=== PATIENT | female | born 1955 | race Caucasian/White ===

== ENCOUNTER 2025-06-29 10:05 | Outpatient (CLI) | payer BC, SELFPAY | END 2025-06-29 10:06 | disposition home or self-care (01) | LOC: AMB 07-02 02:27 | PROVIDERS: Visit Provider Student in an Organized Health Care Education/Training Program | DX: I49.9 Cardiac arrhythmia, unspecified (principal) | CPT/HCPCS: A0425; A0427 ==

== ENCOUNTER 2025-06-29 10:36 | Emergency (ER) | payer BC, SELFPAY ==
[2025-06-29] VITALS (12 sets, daily range): BP systolic 145–170; BP diastolic 83–89; PULSE 78–93; RESP 12–21; TEMP 36.8; O2SAT 90–98
--- OUTSIDE RECORDS SUMMARY | 2025-06-29 10:40 | XMS_ITS | Clinical Summary ---
Author Organization [facility] Address [address] [place] [address] Care Team Providers Care Milling Operator Name Role Phone Josesito Billings M.D. Primary Care Provider [phone] Source Comments Patient records contain information from all sites at [facility]. For routine questions regarding patient records, call [phone] during business hours, M-F 8:00 AM - 5:00 PM Central Time. Record requests for emergency care only can be directed to [phone] at any time.[facility] Allergies No known active allergies Medications artificial tears,hypromellos e, (ISOPTO TEARS) 0.3 % ophthalmic solution 1 drop 3 (three) times a day as needed. Active betamethasone dipropionate 0.05 % cream Apply topically. 3 Active omeprazole (PriLOSEC) [address] capsule Take 40 mg by mouth. 3 Active acetaminophen (TylenoL) 325 mg tablet Take 325 mg by mouth as needed for pain. Active apixaban (Eliquis) 5 mg tablet Take 0.5 tablets (2.5 mg total) by mouth 2 (two) times a day. 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 Resolved Problems Problem Noted Date Diagnosed Date Resolved Date Cataract Senile Nuclear Sclerosis Left 01/29/2019 04/11/2023 Overview (01/29/2019): Added automatically from request for surgery [id number] Cataract Senile Nuclear Sclerosis Right 01/29/2019 04/11/2023 Overview (02/10/2019): Added automatically from request for surgery [id number] Hypothyroidism 06/28/2009 10/15/2024 Immunizations Immunization Administration Dates Next Due PCV20 10/26/2022 SARS-COV-2 (COVID-19) - PFIZ ER (Discontinued)(12 years or older) 07/05/2021,11/14/2020,10/19/2020 Td (Adult), adsorbed 11/11/2003 Td Preservative Free (TENIVAC, DECAVAC) 10/27/19 23 Tdap 04/02/2013 Family History Medical History Relation Name Comments Cataracts Father Cataracts Mother Anesthesia problems Neg Hx Diabetes Neg Hx Glaucoma Neg Hx Hypertension Neg Hx Macular degeneration Neg Hx Relation Name Status Comments Father Mother Social History Tobacco Use Types Packs/Day Years Used Date Smoking Tobacco: Never Smokeless Tobacco: Never Alcohol Use Standard Drinks/Week Comments Yes 5 (1 standard drink = 0.6 oz pur e alcohol) [facility] Utilities Answer Date Recorded In the past 12 months has e [employer] gas, oil, or water [employer] threatened to shut off services in your home? No 10/09/2024 Hunger Vital Sign Answer Date Recorded Within the past 12 months, y ou worried that your food would run out before you got the money to buy more. Never true 10/10/19 25 Ran Out of Food in the Last Year Not on file 10/09/2024 PRAPARE - Transportation Answer Date Re corded In the past 12 months, has l ack of transportation kept you from medical appointments or from getting medications? No 02/2025 In the past 12 months, has l ack of transportation kept you from meetings, work, or from getting things needed for daily living? No 10/09/2024 Housing Stability Answer Date Recorded What is your living situation today? I have a [facility] place to live 10/09/2024 Comments No Sex and Gender Information Value Date Recorded Sex Assigned at Female 10/09/2024 10:51 AM FINANCIAL OPERATIONS ANALYST Legal Sex Female 6:41 AM FINANCIAL OPERATIONS ANALYST Gender Identity Female 10/09/2024 10:51 AM FINANCIAL OPERATIONS ANALYST Sexual Orientation Straight 10/09/2024 10 :51 AM FINANCIAL OPERATIONS ANALYST Last Filed Vital Signs Vital Sign Reading Time Taken Comments Blood Pressure 145/84 10/21/2024 11:45 AM CDT Pulse 67 10/21/2024 11:45 AM CDT Temperature 36 C (96.8 F) 10/21/2024 11:30 AM CDT Respiratory Rate 16 10/21/2024 11:3 0 AM CDT Oxygen Saturation 96% 10/21/2024 11: 45 AM CDT Inhaled Oxygen Concentration - - Weight 94.2 kg (207 lb 10.8 oz) 025 10:37 AM CDT Height 162 cm (5' 3.78) 10/21/2024 10: 37 AM CDT Body Mass Index 35.89 10/21/2024 10:37 AM CDT Plan of Treatment Health Maintenance Due Date Last Done Comments CT Colonography 1957 Cologuard 1957 Colonoscopy 1957 Colorectal Cancer Surveillance 1955 Hepatitis C Screening 1955 Zoster Vaccines (1 of 2) 2007 Mammogram 02/25/2025 02/26/2024, 02/03, 11/06/2022, Additional history exists COVID-19 Vaccine ( season) 2025 07/05/2021, 11/14/2020, 10/19/2020 Influenza Vaccine (#1) 2025 Visit: Annual, age 65+ (or Medicare and <65) 10/15/2025 10/15/2024 Fasting Glucose for Diabetes Screening 09/14/2027 09/14/2024, 07/14/2024, 07/14/2024, Additional history exists DTaP,Tdap,and Td Vaccines (3 - Td or Tdap) 10/26/2032 10/26/2022, 04/02/2013, 11/11/2003 Pneumococcal vaccine (50+ years) Completed 10/26/2022 Bone Density Scan (Osteoporosis Screen) Discontinued 11/06/2022 Depression Screening (Annual PHQ-2) Completed 10/15/2024, 10/09/2024 Fall Risk Screen (Annual) Completed 10/21/2024 IPV Vaccines Aged Out No longer eligi ble based on patient's age to complete this topic Medical Devices Implanted Type Area Thermodynamics Professor Device Identifier Shelf Expiration Date Model / Serial / Lot Syfony Lens Implanted:Qty : 1 on 02/18/2019 by Ramy Gamino M.D. at [facility] Ocular (Eye) Implant Rizo 01/21/2022 [id number] / [id number] / NA +22.5d +3.25d Add Implanted:Qty : 1 on 03/09/2019 by Ramy Gamino M.D. at [facility] Ocular Lens Left: Eye [employer] [id number] 02/06/2022 [id number] / [id number] / Procedures Procedure Name Priority Date/Time Associated Diagnosis Comments COMPREHENSIVE METABOLIC PANEL, S/P STAT 09/14/2024 12:20 PM FINANCIAL OPERATIONS ANALYST from Last 3 Months or Most Recently Relevant to Health Maintenance Results * (ABNORMAL) Comprehensive Metabolic Panel (09/14/2024 12:20 PM FINANCIAL OPERATIONS ANALYST) [facility] Potassium, P 3.9 3.6 - 5.2 mmol/L 09/14/2024 12:51 PM FINANCIAL OPERATIONS ANALYST CNFL Sodium, P 135 135 - 145 mmol/L 09/14/2024 12:51 PM FINANCIAL OPERATIONS ANALYST CNFL Chloride, P 101 98 - 107 mmol/L 09/14/2024 12:51 PM FINANCIAL OPERATIONS ANALYST CNFL Bicarbonate, P 25 22 - 29 mmol/L 09/14/2024 12:51 PM FINANCIAL OPERATIONS ANALYST CNFL Anion Gap, P 9 7 - 15 09/14/2024 12:51 PM FINANCIAL OPERATIONS ANALYST CNFL BUN (Blood Urea Nitrogen), P 11 6 - 21 mg/dL 09/14/2024 12:51 PM FINANCIAL OPERATIONS ANALYST CNFL Creatinine 0.73 0.59 - 1.04 mg/dL 09/14/2024 12:51 PM FINANCIAL OPERATIONS ANALYST CNFL Estimated GFR (eGFR) >90 >=60 mL/min/BS A 09/14/2024 12:51 PM FINANCIAL OPERATIONS ANALYST CNFL Comment: Estimated GFR calculated using the 2020 CKD_EPI creatinine equation. Calcium, Total, P 8.4(L) 8.8 - 10.2 mg/dL 09/14/2024 12:51 PM FINANCIAL OPERATIONS ANALYST CNFL Glucose, P 155(H) 70 - 140 mg/dL 09/14/2024 12:51 PM FINANCIAL OPERATIONS ANALYST CNFL Protein, Total, P 6.7 6.3 - 7.9 g/dL 09/14/2024 12:51 PM FINANCIAL OPERATIONS ANALYST CNFL Albumin, P 4.2 3.5 - 5.0 g/dL 09/14/2024 12:51 PM FINANCIAL OPERATIONS ANALYST CNFL Aspartate Aminotransferase (AST), P 51(H) 8 - 43 U/L 09/14/2024 12:51 PM FINANCIAL OPERATIONS ANALYST CNFL Alkaline Phosphatase, P 103 35 - 104 U/L 09/14/2024 12:51 PM FINANCIAL OPERATIONS ANALYST CNFL Alanine Aminotransferase (ALT), P 75(H) 7 - 45 U/L 09/14/2024 12:51 PM FINANCIAL OPERATIONS ANALYST CNFL Bilirubin, Total, P 0.4 0.0 - 1.2 mg/dL 09/14/2024 12:51 PM FINANCIAL OPERATIONS ANALYST CNFL Blood (Blood, Venous) 09/14/2024 12:20 PM FINANCIAL OPERATIONS ANALYST 09/14/2024 12:30 PM FINANCIAL OPERATIONS ANALYST Konstantin Ruiz P.A.-C., P.A. LAB BLOOD ADD-ON F inal Result [facility] [address] [place] [id number], [facility] CN[facility] in [address] [id number] from Last 3 Months or Most Recently Relevant to [place] [address] [employer] [facility] [place] [address] Care Teams Milling Operator Relationship Specialty Start Date End Date Josesito Billings M.D. [address] [place] [address] [place] [phone] PCP - General Family Medicine 09/08/24
--- OUTSIDE RECORDS SUMMARY | 2025-06-29 10:40 | XMS_ITS | Clinical Summary ---
Author Organization [facility] Address [address] [place] [address] Care Team Providers Care Stiff Leg Derrick Operator Name Role Phone Kristi Peacock MD Primary Care Provider Allergies No known active allergies Medications omeprazole (PRILOSEC) 40 mg Delayed-Release capsuleIndicatio ns:Esophageal dysphagia Take 1 Capsule (40 mg) by mouth once daily before a meal. 90 Capsule 3 05/15/20 Active Additional Information Patient taking differently:40 mg Oral ONCE DAILY BEFORE A MEAL,As needed, Reported on 04/28/2025 betamethasone dipropionate 0.05 % creamIndications :Lichen planus atrophicus Apply topically to affected area(s) once daily. Use once daily for 1 month. Then use 3 times weekly to vaginal area. 45 g 2 01/05/20 Active Additional Information Patient taking differently:Topical DAILY,Use once daily for 1 month. Then use 3 times weekly to vaginal area. As needed, Reported on 04/28/2025 rivaroxaban (Xarelto) 10 mg tabletIndication s:History of pulmonary embolus (PE) Take 1 Tablet (10 mg) by mouth once daily with evening meal. 90 Tablet 3 06/16/20 Active apixaban 5 mg tablet Take 2.5 mg by mouth two times daily. 10/16/19 025 Discontin ued(*Arturo rgic/Adve rse Rxn/Side Effects) Active Problems Problem Noted Date Diagnosed Date Personal history of pulmonary embolism Subclinical hyperthyroidism 10/15/2024 Colon polyp 06/10/2024 Overview (06/10/2024): Colonoscopy 06/2024 TA, repeat in 7 years Eosinophilic esophagitis 01/08/2023 Overview (01/08/2023): EGD 01/2022 EoE, try omeprazole Pap smear for cervical cancer screening 11/24/19 23 Overview (11/23/2022): 10/2022 NIL/ HPV negative Plan: routine screening Routine adult health maintenance 06/17/2013 Overview (06/17/2013): Colonoscopy 06/2013 normal repeat in 10 years Unspecified hypothyroidism 06/28/2009 Plantar fascial fibromatosis 02/12/2008 Other specified disorders of rotator cuff syndrome of shoulder and allied disorders 01/03/2006 Overview (01/21/2008): left rotator cuff tendonitis Encounters Date Type Department Care Team Description 06/29/2025 9:00 AM CAPACITOR ASSEMBLER Office Visit [facility] [address] [place] [address] Cardiovascular Diagnostic Testing (Stress echo) 06/29/2025 Travel 06/16/2025 8:25 AM CAPACITOR ASSEMBLER Office Visit [facility] [address] [place] [address] Kristi Peacock MD Musculoskeletal Problem (Achy legs); Chest Pain (Not pain but tightness in her chest. Sometimes will feel a flutter) 06/15/2025 Travel 06/14/2025 Nurse Triage [facility] [address] [place] [address] Kristi Peacock MD Questions 06/14/2025 Telephone [facility] [address] [place] [address] Kristi Peacock MD Medication Management (ELLOQUIS); Chest Pain/problem (fluttering) 04/28/2025 10:20 AM CDT Ancillary Procedure [facility] [address] [place] [address] 04/28/2025 9:15 AM CDT Office Visit [facility] [address] [place] [address] Kristi Peacock MD Physical (69 yr/) 04/28/2025 Travel from Last 3 Months Immunizations Immunization Administration Dates Next Due Pneumococcal Conj 20-valent (Prevnar 20) 023 Td (Age >=7 Years) 11/11/2003 Td, Preservative Free (age >= 7 Years) 3 Tdap 04/02/2013 Family History Medical History Relation Name Comments Thyroid Disease Daughter hypothyroid Coronary artery disease Father Heart Disease Father [place] Cancer-breast Maternal Aunt Stroke Maternal Grandfather Unknown Maternal Grandmother Cancer Mother cervical CA Heart Disease Paternal Grandfather Diabetes Paternal Grandmother Cancer-breast Sister 1 Factor V Leiden deficiency Sister 1 Factor V Leiden deficiency Sister 2 Cancer-ovarian No Family History Relation Name Status Comments Daughter Father Maternal Aunt Maternal Grandfather Maternal Grandmother Mother Paternal Grandfather Paternal Grandmother Sister 1 Alive Sister 2 Alive Social History Tobacco Use Types Packs/Day Years Used Date Smoking Tobacco: Never Passive Smoke Exposure: Yes Smokeless Tobacco: Never Tobacco Cessation:Counseling Given: Yes Comments: smokes Alcohol Use Standard Drinks/Week Comments Yes 8 (1 standard drink = 0.6 oz pur e alcohol) wine, 8 glasses/week PHQ-2 Answer Date Recorded PHQ-2 TOTAL SCORE 1 04/28/2025 Social Connections Answer Date Recorded Do you often feel lonely or isolated from those around you? 0 07/14/2024 Alcohol Use Answer Date Recorded How often do you have a drink containing alcohol ? 4 04/28/2025 How many drinks containing a lcohol do you have on a typical day when you are drinking? 0 04/28/2025 How often do you have five or more drinks on one occasion? 0 04/28/2025 Financial Resource Strain Answer Date R ecorded Difficulty of Paying Living Expenses 3 07/14/2024 Difficulty of Paying Living Expenses Not on file 07/14/2024 Food Insecurity Answer Date Recorded Do you worry your food will run out before you are able to buy more? 1 07/14/2024 Transportation Needs Answer Date Record ed Does lack of transportation keep you from medica l appointments? 1 07/14/2024 Does lack of transportation keep you from work, meetings or getting things that you need? 1 07/14/2024 Housing Stability Answer Date Recorded What is your housing situation today? 1 07/14/2024 Utilities Answer Date Recorded Do you have trouble paying f or utilities (for example, heat, electricity, water, phone)? 1 07/14/2024 Comments No Sex and Gender Information Value Date Recorded Sex Assigned at Not on file Legal Sex Female 5:25 AM CAPACITOR ASSEMBLER Gender Identity Not on file Sexual Orientation Not on file Occupation Industry Job Start Date Job End Date Not on file Not on file Not on file Not on file Obstetrics History Last Filed Vital Signs Vital Sign Reading Time Taken Comments Blood Pressure 130/75 06/29/2025 9:25 AM CAPACITOR ASSEMBLER Pulse 70 06/29/2025 9:25 AM CAPACITOR ASSEMBLER Temperature 36.6 C (97.9 F) 05/15/2024 8:24 AM CDT Respiratory Rate 16 01/01/2023 12:49 PM CDT Oxygen Saturation 94% 06/29/2025 9:25 AM CAPACITOR ASSEMBLER Inhaled Oxygen Concentration - - Weight 95.4 kg (210 lb 6.4 oz) 06/16/2025 8:27 A M CAPACITOR ASSEMBLER Height 161.9 cm (5' 3.75) 06/16/2025 8:27 AM CS T Body Mass Index 36.4 06/16/2025 8:27 AM CAPACITOR ASSEMBLER Plan of Treatment Health Maintenance Due Date Last Done Comments RSV vaccine for adults or (1 - Risk 50-74 years 1-dose series) 2007 Zoster (shingles) series for age 50+ (1 of 2) 2007 COVID-19 vaccine series ( season) 2025 07/05/2021, 11/14/2020, 10/19/2020 Influenza Vaccine (#1) 2025 Depression screening for age 12+ 04/28/2026 04/28/2025, 05/15/2024, 10/26/2022, Additional history exists Mammogram for age 45-75 04/28/2026 04/28/20, 02/26/2024, 11/06/2022, Additional history exists BMI (ht and wt on same day) for age 18+ 06/16/2026 06/16/2025, 04/28/2025, 05/15/2024, Additional history exists Lipids for age 45-75 04/28/2030 04/28/2025, 05/15/2024, 11/06/2022, Additional history exists Colonoscopy through age 75 06/09/203106/09 (Completed outside of [facility]), 06/12/2013 Tetanus booster 10/26/2032 10/26/2022, 03/06, 11/11/2003 Pneumococcal series for age 50+ Completed 10/26/2022 DEXA/DXA scan for age 65+ Completed 11/06/2022 Hepatitis C screening for age 18-79 Completed 11/06/2022 Hepatitis B series for 19+ Aged Out N o longer eligible based on patient's age to complete this topic Procedures Procedure Name Priority Date/Time Associated Diagnosis Comments XR MAMMO ITZEL BILAT SCREEN Routine 04/28/2025 10:27 AM CDT Visit for screening mammogram COMP METABOLIC PANEL Routine 04/28/2025 10:06 AM CDT Diabetes mellitus screening Elevated transaminase level LIPID PANEL W REFLEX MEASURED LDL Routine 04/28/2025 10:06 AM CDT Lipid screening HEMOGLOBIN A1C Routine 04/28/2025 10:06 AM CDT Diabetes mellitus screening XR DXA BONE DENSITY 2 SITES AXIAL Routine 11/06/2022 7:52 AM CDT Postmenopausal LC HCV ANTIBODY RFX TO QUANT PCR Routine 11/06/2022 7:25 AM CDT Need for hepatitis C screening test from Last 3 Months or Most Recently Relevant to Health Maintenance Results * XR MAMMO ITZEL BILAT SCREEN (04/28/2025 10:27 AM CDT) Anatomical Region Laterality Modality BREASTS, Breast Left, Breast Right Bilateral Mammography Impressions 04/30/2025 2:42 PM CDT There is no radiographic evidence for malignancy. Recommend annual mammograms. MAMMOGRAM ASSESSMENT: ACR 1 Negative PATIENTS: You will also receive a letter with your examination results in an easy to read format. If you have questions about your results, please contact your referring provider. Narrative 04/30/2025 2:42 PM CDT For Patients: As a result of the Century Cures Act, medical imaging exams and procedure reports are released immediately into your electronic medical record. You may view this report before your referring provider. If you have questions, please contact your health care provider. XR MAMMO ITZEL BILAT SCREEN [[id number]] CLINICAL HISTORY: This is an asymptomatic 69 y.o. patient. INDICATION FOR EXAM: Mammogram Screening. TECHNIQUE: CC and MLO views were obtained. This study was evaluated with the assistance of Computer-Aided Detection. Breast Tomosynthesis was used in interpretation. COMPARISON FILM: Yes 02/26/24 [facility] 11[facility]06/22 [facility] FINDINGS: The breasts are almost entirely fatty. There are no dominant masses, suspicious micro calcifications or areas of architectural distortion. us Kristi Peacock MD MAMMO Final R esult * HEMOGLOBIN A1C (04/28/2025 10:06 AM CDT) HEMOGLOBIN A1C 5.5 <5.7 % 04/29/2025 3:44 AM CDT [facility] Comment: For the purpose of screening for the presence of diabetes: <5.7% Consistent with the absence of diabetes 5.7-6.4% Consistent with increased risk for diabetes (prediabetes) > or =6.5% Consistent with diabetes This assay result is consistent with a decreased risk of diabetes. Currently, no consensus exists regarding use of hemoglobin A1c for diagnosis of diabetes in children. According to [place] Diabetes Association (ADA) guidelines, hemoglobin A1c <7.0% represents optimal control in non- diabetic patients. Different metrics may apply to specific patient populations. Standards of Medical Care in Diabetes(ADA). Blood BLOOD SPECIMEN / Unknown [facility] / Unknown 04/28/2025 10:06 AM CDT 04/28/2025 10:06 AM CDT us Kristi Peacock MD CHEMISTRY Final R esult Performing Organization Address [facility]/ZIP Co de Phone Number [facility] [address] [place] [address], * (ABNORMAL) LIPID PANEL W REFLEX MEASURED LDL (04/28/2025 10:06 AM CDT) CHOLESTEROL, TOTAL 251(H) <200 mg/dL 04/29/2025 6:41 AM CDT [facility] TRIGLYCERIDES 87 <150 mg/dL 04/29/2025 6:41 AM CDT [facility] HDL CHOLESTEROL 98 > OR = 50 mg/dL 04/29/2025 6:41 AM CDT [facility] NON HDL CHOLESTEROL 153(H) <130 mg/dL (calc) 04/29/2025 6:41 AM CDT [facility] Comment: For patients with diabetes plus 1 major ASCVD risk factor, treating to a non-HDL-C goal of <100 mg/dL (LDL-C of <70 mg/dL) is considered a therapeutic option. CHOL/HDLC RATIO 2.6 <5.0 (calc) 04/29/2025 6:41 AM CDT [facility] LDL-CHOLESTEROL 134(H) mg/dL (calc) 04/29/2025 6:41 AM CDT [facility] Comment: Reference range: <100 Desirable range <100 mg/dL for primary prevention; <70 mg/dL for patients with CHD or diabetic patients with > or = 2 CHD risk factors. LDL-C is now calculated using the Naldo-Yasmin calculation, which is a validated novel method providing better accuracy than the Friedewald equation in the estimation of LDL-C. Naldo SS et al. THIAGO. 2013;310(19): 3338-4338 (http://education.Muzui.aka-aki networks/faq/NZB684) Blood BLOOD SPECIMEN / Unknown [facility] / Unknown 04/28/2025 10:06 AM CDT 04/28/2025 10:06 AM CDT Kristi Peacock MD CHEMISTRY Final R esult Performing Organization Address City[facility]/ZIP Co de Phone Number [facility] [address] [address], * COMP METABOLIC PANEL (04/28/2025 10:06 AM CDT) SODIUM 141 135 - 146 mmol/L 04/29/2025 6:41 AM CDT [facility] POTASSIUM 5.0 3.5 - 5.3 mmol/L 04/29/2025 6:41 AM CDT [facility] CHLORIDE 107 98 - 110 mmol/L 04/29/2025 6:41 AM CDT [facility] CARBON DIOXIDE 26 20 - 32 mmol/L 04/29/2025 6:41 AM CDT [facility] GLUCOSE 96 65 - 99 mg/dL 04/29/2025 6:41 AM CDT [facility] Comment: Fasting reference interval CALCIUM 9.2 8.6 - 10.4 mg/dL 04/29/2025 6:41 AM CDT [facility] CREATININE 0.90 0.50 - 1.05 mg/dL 04/29/2025 6:41 AM CDT [facility] BUN/CREATININE RATIO SEE NOTE: (calc) 04/29/2025 6:41 AM CDT [facility] Comment: Not Reported: BUN and Creatinine are within reference range. EGFR 70 > OR = 60 mL/min/1. 73m2 04/29/2025 6:41 AM CDT [facility] ALBUMIN 4.4 3.6 - 5.1 g/dL 04/29/2025 6:41 AM CDT [facility] PROTEIN, TOTAL 6.9 6.1 - 8.1 g/dL 04/29/2025 6:41 AM CDT [facility] BILIRUBIN, TOTAL 0.6 0.2 - 1.2 mg/dL 04/29/2025 6:41 AM CDT [facility] ALKALINE PHOSPHATASE 70 37 - 153 U/L 04/29/2025 6:41 AM CDT [facility] ALT 17 6 - 29 U/L 04/29/2025 6:41 AM CDT [facility] AST 17 10 - 35 U/L 04/29/2025 6:41 AM CDT [facility] UREA NITROGEN (BUN) 19 7 - 25 mg/dL 04/29/2025 6:41 AM CDT [facility] GLOBULIN 2.5 1.9 - 3.7 g/dL (calc) 04/29/2025 6:41 AM CDT [facility] ALBUMIN/GLOBULI N RATIO 1.8 1.0 - 2.5 (calc) 04/29/2025 6:41 AM CDT [facility] Blood BLOOD SPECIMEN / Unknown [facility] / Unknown 04/28/2025 10:06 AM CDT 04/28/2025 10:06 AM CDT Kristi Peacock MD CHEMISTRY Final R esult [facility] [address] [place] [address], * (ABNORMAL) XR DXA BONE DENSITY 2 SITES AXIAL [46876.1] (11/06/2022 7:52 AM CDT) Anatomical Region Laterality Modality Spine, HIPS, HIPL, HIPR Other Impressions 11/09/2022 3:18 PM CDT Osteopenia. RECOMMENDATIONS: The National Osteoporosis Foundation recommends pharmacologic treatment for patients with T-scores of -2.5 or less, patients with prior history of fragility fractures, or patients with 10-year probability of greater than 3% at hips or greater than 20% of suffering major osteoporotic fractures. Recommend continued optimization of calcium and vitamin D intake through dietary means and/or supplementation and regular exercise. Repeat scan recommended in 3-5 years. Alejandra Hankins PA-C [facility] 11/09/2022 Narrative 11/09/2022 3:18 PM CDT For Patients: Results are automatically released to your [facility] account once available, in compliance with federal regulations. This means that you may see your results before your provider has had a chance to review them. Please allow 2-3 business days for your provider to comment on the results. XR DXA Bone Mineral Density (BMD) EXAM LOCATION: [address] [address] PATIENT NAME: Marisol Aly DATE OF : 1955 EXAM DATE: 11/06/2022 REQUESTING PROVIDER: Detert, Rita Shabnam, DO GENDER AT : female HEIGHT: 5' 3.5 (10/26/2022) WEIGHT: 202 lb (10/26/2022) MENOPAUSAL STATUS: Postmenopausal RACE/ETHNICITY: White RISK FACTORS: White Race CURRENT MEDICATION FOR BONE LOSS: NONE INDICATION: Post-Menopause COMPARISON DATE(S): None DXA scans are compared to prior studies for a patient only when the two (or more) studies were performed on the same scanner. It is not possible to compare data generated on one scanner to data from another because there are not standards in DXA equipment. This applies even if the two scanners are made by the same welding machine operator gas metal arc. PROCEDURE: Dual-energy x-ray absorptiometry performed with routine technique. Reporting is completed in the form of a T-score. The T-score represents the standard deviation from peak bone mass based on young healthy adult. A Z-score is used for diagnosis in premenopausal women, and for men under the age of 50. FINDINGS: RESULT LUMBAR SPINE L1 - L3 BMD: 1.005 g/cm2 T-Score: - 1.4 Z-Score: - 0.7 Change from prior: None RESULTS FEMUR Left femoral neck BMD: 0.812 g/cm2 T-Score: - 1.6 Z-Score: - 0.7 Change from prior: None Right femoral neck BMD: 0.843 g/cm2 T-Score: - 1.4 Z-Score: - 0.5 Change from prior: None Left hip BMD: 0.914 g/cm2 T-Score: - 0.7 Z-Score: - 0.2 Change from prior: None Right hip BMD: 0.959 g/cm2 T-Score: - 0.4 Z-Score: + 0.2 Change from prior: None WHO criteria: Normal: T-score at or above -1 SD Osteopenia: T-score between -1.1 and -2.4 SD Osteoporosis: T-score at or below -2.5 SD FRAX RISK CALCULATION (USED FOR OSTEOPENIA ONLY): 10-year probability of major osteoporotic fracture: 8.7%. 10-year probability of hip fracture: 1.0%. us Rita Ferreira DO DEXA Final Resul t * LC HCV ANTIBODY RFX TO QUANT PCR (11/06/2022 7:25 AM CDT) HCV Ab Non Reactive Non Reactive 11/08/2022 10:06 PM CDT [facility] Blood BLOOD SPECIMEN / Unknown Venipuncture / Unknown 11/06/2022 7:25 AM CDT 11/06/2022 7:31 AM CDT Narrative [facility] - 11/08/2022 10:06 PM CDT Performed at: [address] [id number] Gas Manager: Modesto Ashby MD, Phone: [phone] us Rita Ferreira DO LABORATORY Final Resul t [facility] [place] [address], from Last 3 Months or Most Recently Relevant to Health Maintenance Insurance [facility] Care Teams Stiff Leg Derrick Operator Relationship Specialty Start Date End Date Kristi Peacock MD [address] [place] [address] PCP - General Family Practice 04/28/25
--- OUTSIDE RECORDS SUMMARY | 2025-06-29 10:40 | XMS_ITS | CCD ---
Author Name Interface, [id number] lity Address [address] [place] [address] [facility] Address [address] [place] [address] Reason for Visit Social History Date Name Value 05/10/2025 Sex Female
--- NOTE | 2025-06-29 11:26 | ED.ARRPALP ---
HPI - Arrhythmia/Palpitations General Chief Complaint: Arrhythmia/Palpitations Stated Complaint: Tachycardia Time Seen by Provider: 06/29/25 10:56 History of Present Illness HPI narrative: This 70-year-old female was at the clinic having a stress test and during this time was noted to have a run of supraventricular tachycardia. Carotid massage was performed and she reverted back to normal sinus rhythm. She was sent here for further evaluation. The patient is little nervous about what happened but states that she did not have any chest pain, lightheadedness, shortness of breath, nausea, vomiting, or diaphoresis. She states that she walks a mi and a half every day without any symptoms. She did have a blood clot about a year ago that went to her long and she is currently taking Xarelto. She had been on Eliquis until about a week ago but this was switched because she states that she has not felt quite normal since this blood clot a year ago. She does not describe any specific symptoms to clarify I will she is not felt normal. She is currently wearing a Zio patch because she felt some palpitations a couple weeks ago. Related Data Home Medications ?Medication ?Instructions ?Recorded ?Confirmed omeprazole 40 mg capsule,delayed 40 mg PO DAILY 06/29/25 06/29/25 release rivaroxaban 10 mg tablet (Xarelto) 10 mg PO DAILY 06/29/25 06/29/25 Allergies Allergy/AdvReac Type Severity Reaction Status Date / Time No Known Drug Allergies Allergy Verified 06/29/25 10:52 Review of Systems Status of ROS: Reports: 10 or more systems reviewed and unremarkable except as noted in History and below Narrative: Constitutional: No fevers, no weight gain or loss. Eyes: No discharge. No vision changes. HENT: No congestion, no sore throat, no ear pain. Cardiovascular: No chest pain. Respiratory: No shortness of breath, no wheezes, no cough. Gastrointestinal: No abdominal pain, no vomiting, no diarrhea. Genitourinary: No dysuria, no hematuria. Musculoskeletal: Normal range of motion. Skin: No rashes, no pruritis. Neurological: No dizziness, weakness, sensory change, speech change. Endo/Heme/Allergies: No bruising or bleeding. No polydipsia. Pysch: no suicidality, no anxiety, no insomnia. All other systems reviewed and are negative. Exam Narrative: Exam Narrative: Constitutional: Well-developed, well-nourished, no acute distress. HEENT: Normocephalic, atraumatic. Neck: Normal range of motion. Nontender. Supple. Heart: Regular. No murmurs. Normal rate. Intact distal pulses. Lungs: Clear to auscultation. No chest discomfort. No wheezes, rhonchi, or rales. Abdomen: Normal bowel sounds. Nontender. No rebound tenderness. Genitalia: Deferred. Back: No midline tenderness. Normal range of motion. Extremities: Normal range of motion. No injury. Skin: Intact. No rash. Warm. No erythema or pallor. Neurologic: No altered sensation. No weakness. Alert and oriented. Psychiatric: No suicidality. No insomnia. Nursing notes and vitals signs are reviewed. Const: Vital Signs, click to edit/add: Vital Signs - 24 hr 06/29/25 10:45 06/29/25 10:54 06/29/25 11:00 Temperature 98.2 F Pulse Rate 83 86 Pulse Rate [Pulse Oximeter] 92 Respiratory Rate 20 18 12 Blood Pressure Blood Pressure [Le ft Upper Arm] 170/89 H Pulse Oximetry 98 96 95 Oxygen Delivery Me thod Room Air 06/29/25 11:02 06/29/25 11:03 06/29/25 11:15 Temperature Pulse Rate 82 86 83 Pulse Rate [Pulse Oximeter] Respiratory Rate 16 19 18 Blood Pressure 159/88 H Blood Pressure [Le ft Upper Arm] Pulse Oximetry 94 94 95 Oxygen Delivery Me thod 06/29/25 11:30 06/29/25 11:32 06/29/25 11:45 Temperature Pulse Rate 93 86 85 Pulse Rate [Pulse Oximeter] Respiratory Rate 16 16 12 Blood Pressure 145/88 H Blood Pressure [Le ft Upper Arm] Pulse Oximetry 90 97 96 Oxygen Delivery Me thod Course Vital Signs Vital signs: Initial Vital Signs Temperature 98.2 F 06/29/25 10:45 Temperature Source Temporal Artery Scan 06/29/25 10:45 Pulse Rate 92 06/29/25 10:45 Respiratory Rate 20 06/29/25 10:45 Blood Pressure 170/89 H 06/29/25 10:45 Blood Pressure Mean 116 H 06/29/25 10:45 Blood Pressure Position Semi-Fowlers 06/29/25 10:45 Pulse Oximetry 98 06/29/25 10:45 Oxygen Delivery Method Room Air 06/29/25 10:45 Vital Signs Temperature 98.2 F 06/29/25 10:45 Pulse Rate 92 06/29/25 10:45 Respiratory Rate 20 06/29/25 10:45 Blood Pressure 170/89 H 06/29/25 10:45 Pulse Oximetry 98 06/29/25 10:45 Oxygen Delivery Method Room Air 06/29/25 10:45 Temperature 98.2 F 06/29/25 10:45 Pulse Rate 85 06/29/25 11:45 Respiratory Rate 12 06/29/25 11:45 Blood Pressure 145/88 H 06/29/25 11:32 Pulse Oximetry 96 06/29/25 11:45 Oxygen Delivery Method Room Air 06/29/25 10:45 MDM - Arrhythmia/Palpitations MDM Narrative Medical decision making narrative: This patient was at a stress test and had a brief episode of some supraventricular tachycardia which was remedied with carotid massage. Throughout this time she was asymptomatic. She arrives here a bit anxious about what happened but is not having any other symptoms. EKG is obtained and shows normal sinus rhythm with occasional PVCs. She was monitored on the heart monitor and continued with normal sinus rhythm and just occasional PVCs. There are no ST or T-wave abnormalities. Labs are acquired and returned with all normal results. In particular her magnesium is normal and her troponin is in normal range. I did explain matters relating to this type of heart rate and reassured the patient and instructed her regarding signs and symptoms that would indicate a need for return re-evaluation. She can continue her current medications and is currently wearing a Zio patch and will benefit from reports that are generated when this is completed. Lab Data Labs: Lab Results 06/29/25 06/29/25 Range/Units 11:04 11:30 WBC 6.44 (4.50-11.00) K/uL RBC 4.81 (4.00-5.20) m/uL Hgb 14.7 (12.0-16.0) gm/dL Hct 45.0 (33.0-51.0) % MCV 94 (80-100) fL MCH 31 (26-34) pg MCHC 33 (32-36) gm/dL RDW Coeff of Kwame 12.7 (11.5-15.5) % Plt Count 283 (140-440) K/uL Neut % (Auto) 47.3 (42.0-72.0) % Lymph % (Auto) 37.6 (20-44) % Putnam % (Auto) 8.1 (0.0-11.0) % Eos % (Auto) 6.2 (0.0-7.0) % Baso % (Auto) 0.6 (0.0-3.0) % Neut # (Auto) 3.05 (1.7-7.0) K/uL Lymph # (Auto) 2.42 (0.90-2.90) K/uL Putnam # (Auto) 0.50 (0.00-0.90) K/UL Eos # (Auto) 0.40 (0.00-0.50) K/uL Baso # (Auto) 0.04 (0.00-0.30) K/uL Abs Immat Gran (auto) 0.01 (0.00-0.30) K/uL Imm/Tot Granulo (auto) 0.2 % Sodium 137 (135-149) mmol/L Potassium 5.1 (3.6-5.1) mmol/L Chloride 99 (96-114) mmol/L Carbon Dioxide 27 (20-32) mmol/L Anion Gap 11 (7-15) mEq/L BUN 15 (7-30) mg/dL Creatinine 0.9 (0.5-1.5) mg/dL Estimated GFR 70 ml/min Glucose 106 (60-115) mg/dL Calcium 9.3 (8.4-10.6) mg/dL Magnesium 2.2 (1.5-2.6) mg/dL POC Troponin I High Sensi 8.5 (2.9-13.0) ng/L ECG Data Attestation: I personally reviewed and interpreted this ECG as follows: Interpretation: Sinus rhythm with occasional PVCs. Rate is 88 beats per minute. There are no specific ST or T-wave abnormalities. Discharge Plan Discharge Clinical Impression: Supraventricular tachycardia Patient Disposition: Home, Self-Care Condition: Stable Additional Instructions: Continue current plans. Follow up with MD after results of Zio patch are obtained. Return if symptoms are recurrent or worsening. Prescriptions: No Action omeprazole 40 mg capsule,delayed release(DR/EC) 40 mg PO DAILY Xarelto 10 mg tablet 10 mg PO DAILY Follow Up/Referrals: Provider,Not a Local [Primary Care Provider, Family Practice] Stand Alone Forms: [facility] Info Instructions
[2025-06-29 11:36] LABS: Hematocrit* 45.0 % (33.0-51.0); Hemoglobin* 14.7 gm/dL (12.0-16.0); Immature Granulocytes Abs Auto 0.01 K/uL (0.00-0.30); Immature Granulocytes Pct Auto 0.2 %; Lymphocytes Absolute Auto 2.42 K/uL (0.90-2.90); Mean Corpuscular HGB Conc 33 gm/dL (32-36); Mean Corpuscular Hemoglobin 31 pg (26-34); Mean Corpuscular Volume 94 fL (80-100); RDW Coefficient of Variation % 12.7 % (11.5-15.5); Red Blood Count* 4.81 m/uL (4.00-5.20); Slide Review Reflex No; White Blood Count* 6.44 K/uL (4.50-11.00)
--- OUTSIDE RECORDS SUMMARY | 2025-06-29 11:43 | XMS_ITS | CCD ---
Author Name Interface, [id number] lity Address [address] [place] [id number] [facility] Address [address] [place] [id number] Reason for Visit Social History Date Name Value 05/10/2025 Sex Female
--- OUTSIDE RECORDS SUMMARY | 2025-06-29 11:44 | XMS_ITS | CCD ---
Author Name Interface, [id number] lity Address [address] [place] [address] [facility] Address [address] [place] [id number] Reason for Visit Social History Date Name Value 05/10/2025 Sex Female
[2025-06-29 11:48] LABS: Chloride* 99 mmol/L (96-114); Sodium* 137 mmol/L (135-149)
[2025-06-29 11:49] LABS: Potassium* 5.1 mmol/L (3.6-5.1)
[2025-06-29 11:51] LABS: Anion Gap 11 mEq/L (7-15); Blood Urea Nitrogen* 15 mg/dL (7-30); Carbon Dioxide* 27 mmol/L (20-32); Creatinine* 0.9 mg/dL (0.5-1.5); Estimated Glomerular Filt Rate 70 ml/min
[2025-06-29 11:52] LABS: Calcium* 9.3 mg/dL (8.4-10.6); Glucose* 106 mg/dL (60-115)
== END 2025-06-29 12:25 | disposition home or self-care (01) ==
PROVIDERS: Emergency Provider Emergency Medicine Emergency Medical Services
DX: I47.10 Supraventricular tachycardia, unspecified (principal)
CPT/HCPCS: 36415; 80048; 83735; 84484; 85025; 93005; 99284